=== PATIENT | female | born 1940 | race Caucasian/White ===

== ENCOUNTER 2022-01-16 10:59 | Emergency (ER) | payer MEDICARE ==
[~2022-01-16] VITALS: Ht 160 cm; Wt 64.0 kg
[2022-01-16] MEDS ORDERED: KETOROLAC 60MG/2ML VIAL IM ONE (12:00)
[2022-01-16 12:24] VITALS: BP 147/72
== END 2022-01-16 12:26 | disposition home or self-care (01) ==
LOC: ER 11:49
DX: M25.562 Pain in left knee (principal); M25.561 Pain in right knee; I10 Essential (primary) hypertension
CPT/HCPCS: 96372; 99283; J1885